=== PATIENT | female | born 1970 | race Caucasian/White ===

== ENCOUNTER 2019-11-21 16:47 | Observation (INO) | payer MEDICAID ==
[~2019-11-21] VITALS: Ht 157.5 cm; Wt 50.0 kg
--- NOTE | 2019-11-21 17:45 | NUR ---
PT STATES THAT HER CAT SCRATCHED HER YESTERDAY AND TODAY THERE IS A FLUID FILLED BLISTER ON LEFT HAND WELL SMALL PURULENT SCABBED AREA ON THIRD TOP KNUCKLE. PT STAETS VERY PAINFUL TO TOUCH AND HURTS UP INTO HER AXILLA AREA.
--- NOTE | 2019-11-21 17:46 | NUR ---
ARIN AT BEDSIDE ATTEMPTING IV ACCESS AND LAB DRAW.
[2019-11-21 18:03] LABS: HEMATOCRIT 38.4 % (37.0-47.0); HEMOGLOBIN 12.7 g/dl (12.0-16.0); IMMATURE GRANULOCYTES 0.4 % (0.0-5.0); MEAN CELL VOLUME 93.7 fL CALC (80.0-100.0); MEAN CORPUSCULAR HGB CONC 33.1 g/L CALC (32.0-36.0); NEUT# 9.32 thou/uL (2.00-7.15); RED BLOOD COUNT 4.1 mill/uL (4.20-5.60); RED CELL DISTRI WIDTH 13.2 % (11.5-15.5)
[2019-11-21 18:26] LABS: ANION GAP 14 (6-22 (CALC)); BUN 4 mg/dL (7-17); BUN/CREATININE RATIO 8 (12-20 (CALC)); CARBON DIOXIDE 24 mmol/l (22-30); CHLORIDE 101 mmol/l (95-108); CREATININE 0.5 mg/dL (0.5-1.0); GFR > 60 ML/MIN (>=60 (CALC)); GFR FOR AFR.AMER. > 60 ML/MIN (>=60 (CALC)); POTASSIUM 3.8 mmol/l (3.5-5.1); SODIUM 135 mmol/l (137-146)
--- NOTE | 2019-11-21 18:36 | NUR ---
IVF AND IV ABT INFUSING ORDERED, CALL SOLORIO WITHIN REACH.
--- NOTE | 2019-11-21 19:14 | NUR ---
Admission Note Report Given to: CLEMENTE MIRELES Transported by: X Wheelchair Stretcher Transported with: X Nurse Transporter X Patent IV [employer] Location: ICU X [facility]
--- NOTE | 2019-11-21 20:00 | NUR ---
PT ARRIVED TO FLOOR VIA WHEELCHAIR.DX LEFT HAND CELLULITIS. PT WAS BITTEN BY CAT AT HOME. A/OX3 ABLE TO VOICE NEEDS. MIN PAIN VOICED IN LEFT HAND RADIATING UP TO NECK.LUNGS CLEAR. ABDOMEN SOFT NONTENDER. PULSES PRENSENT. SKIN INTACT.MD CONTACT. MORPHINE AND ZOFRAN ORDERS RECIEVED. BED IN LOW POSITION. CALL LIGHT IN REACH, WILL MONITOR. .
[2019-11-22] VITALS: BP 100/59
--- NOTE | 2019-11-22 03:08 | NUR ---
VANCO TROUGH IS 15-VANCO HUNG ORDERED VIA RIGHT FOREARM. NO COMPLANTS AT THIS TIME. SAFETY PRECAUTIONS REINFORCED. CALL LIGHT IN REACH. WILL CONT TO MONITOR.
[2019-11-22 05:42] VITALS: BP 100/64
--- NOTE | 2019-11-22 08:09 | NUR ---
S: NADIA CARLISLE is a 49 F who presents with cellulitis of the left hand. All medications in patient's chart were reviewed. O: VS: BP:114/42, P:112, RR:18, T:99.5 W: 50kg, HT: 62in, Scr=0.5, CrCl= 107.4 mL/min A: Blood culture is pending. P: Patient is on vancomycin. Vancomycin ordered for pharmacy to dose. Start Vancomycin 1 g IV q12h. Vancomycin trough is drawn before the 4th dose on 11/23/19 at 0830. Vancomycin goal trough is between 10-15 mcg/ml. Pharmacy will follow and or advise on antibiotics use as needed.
--- NOTE | 2019-11-22 14:55 | NUR ---
PT A&oX3 SITTING UP IN BED W/VISITOR AT BEDSIDE. C/O PAIN STARTING TO INCREASEAT THIS TIME. EDUCATED PATIENT ON KEEPING LUE ELEVATED TO HELP "THROBBING" PAIN. PAIN MEDICATIONS ADMINISTERED, PT TOLERATING WELL. WILL CONTINUE TO ASSESS AND MONITOR. EMMA
[2019-11-22 16:00] VITALS: BP 102/70
[2019-11-22 19:28] VITALS: BP 80/54
--- NOTE | 2019-11-22 19:45 | NUR ---
PT. SITTING UP IN BED WITH NO DISTRESS NOTED; DENIES NEEDS/PAIN. UPDATED ON POC AND VERBALIZES UNDERSTANDING. CELLULITIS NOTED TO OUTER LEFT 2 KNUCKLES; MARTINEZ. ASSESSMENT COMPLETED. IV SITE PATENT AND SL. ENCOURAGED TO CALL FOR ANY NEEDS. CALL LIGHT IS IN REACH.
[2019-11-22 20:58] VITALS: BP 98/52
--- NOTE | 2019-11-22 20:58 | NUR ---
REASSESSED B/P MANUALLY . PT. REFUSED LOVENOX AND REPORTS SHE WILL AMBULATE MORE.
--- NOTE | 2019-11-22 23:35 | NUR ---
PT. RESTING IN BED WITH NO DISTRESS NOTED;DENIES NEEDS/PAIN. SCHED ABT HUNG. PO FLUIDS OFFERED. ENCOURAGED TO CALL FOR ANY NEEDS.
--- NOTE | 2019-11-23 00:48 | NUR ---
PT. C/O LEFT HAND PAIN / AND MEDICATED WITH ORDERED PRN TRAMADOL, WILL REASSESS. PO FLUIDS OFFERED. CALL LIGHT IS IN REACH.
--- NOTE | 2019-11-23 03:05 | NUR ---
RESTING IN BED WITH NO DISTRESS NOTED; DENIES NEEDS. CALL LIGHT IS IN REACH.
[2019-11-23 03:45] VITALS: BP 86/50
--- NOTE | 2019-11-23 05:27 | NUR ---
PT. C/O LEFT HAND PAIN, MEDICATED WITH ORDERED TORADOL AND SCHED ABT, WILL REASSESS. COFFEE PROVIDED. CALL LIGHT IS IN REACH.
[2019-11-23 05:38] LABS: IMMATURE GRANULOCYTES 0.4 % (0.0-5.0); MEAN CELL VOLUME 95.8 fL CALC (80.0-100.0); MEAN CORPUSCULAR HGB 30.7 pG CALC (26.0-32.0); MEAN CORPUSCULAR HGB CONC 32.1 g/L CALC (32.0-36.0); NEUT# 4.03 thou/uL (2.00-7.15); RED BLOOD COUNT 3.32 mill/uL (4.20-5.60); RED CELL DISTRI WIDTH 13.3 % (11.5-15.5)
[2019-11-23 06:02] LABS: HEMATOCRIT 31.8 % (37.0-47.0); HEMOGLOBIN 10.2 g/dl (12.0-16.0)
[2019-11-23 06:03] LABS: ANION GAP 8 (6-22 (CALC)); BUN 8 mg/dL (7-17); BUN/CREATININE RATIO 16 (12-20 (CALC)); CARBON DIOXIDE 26 mmol/l (22-30); CHLORIDE 106 mmol/l (95-108); CREATININE 0.5 mg/dL (0.5-1.0); GFR > 60 ML/MIN (>=60 (CALC)); GFR FOR AFR.AMER. > 60 ML/MIN (>=60 (CALC)); MAGNESIUM 2.1 mg/dL (1.6-2.3); POTASSIUM 4.3 mmol/l (3.5-5.1); SODIUM 136 mmol/l (137-146)
[2019-11-23 06:21] VITALS: BP 96/50
--- NOTE | 2019-11-23 06:21 | NUR ---
MANUAL B/P OBTAINED AND IS 96/50. PT. ASYMPTOMATIC. DENIES NEEDS. CALL LIGHT IS IN REACH.
[2019-11-23 08:06] VITALS: BP 108/70
[2019-11-23 15:00] VITALS: BP 90/60
[2019-11-23 18:40] VITALS: BP 104/77
--- NOTE | 2019-11-23 19:38 | NUR ---
ASSESSMENT COMPLETED. NO DISTRESS NOTED; RESP. EVEN AND UNLABORED. OUTER TWO KNUCKLES TO LEFT HAND WITH OPEN AREAS NOTED, ENCOURAGED TO ELEVATE.IV SITE PATENT. PT. CONTINUES TO DECLINE LOVENOX INJECTION, BUT WILL ALLOW STAFF TO APPLY LONNIE HOSE; APPLIED AT THIS TIME. ENCOURAGED TO CALL FOR ANY NEEDS. CALL LIGHT IS IN REACH.
--- NOTE | 2019-11-23 21:29 | NUR ---
PT. C/O LEFT HAND PAIN AND SMALL NODULE NOTED TO LEFT OUTER NECK; WARM PACK APPLIED TO NECK AND INSTRUCTED TO SHOW PROVIDER IN AM UPON ROUNDS; VERBALIZES UNDERSTANDING. MEDICATED WITH SCHEDULED TORADOL, WILL REASSESS. CALL LIGHT IS IN REACH.
--- NOTE | 2019-11-23 23:50 | NUR ---
SCHEDULED ANTIBIOTIC HUNG. DENIES PAIN. COLA PROVIDED. ENCOURAGED TO CALL FOR ANY NEEDS. CALL LIGHT IS IN REACH.
--- NOTE | 2019-11-24 03:29 | NUR ---
PT. C/O LEFT HAND PAIN WELL NECK PAIN ADJUSTED PILLOWS AND MEDICATED WITH ORDERED PRN LORTAB, WILL REASSESS. CALL LIGHT IS IN REACH.
[2019-11-24 03:35] VITALS: BP 95/58
--- NOTE | 2019-11-24 05:35 | NUR ---
PT. RESTING IN BED WATCHING TV. NO DISTRESS NOTED. C/O LEFT HAND PAIN 02/15 AND MEDICATED WITH ORDERED/SCHED TORADOL; WILL REASSESS. COFFEE PROVIDED. CALL LIGHT IS IN REACH.
[2019-11-24 05:44] LABS: HEMOGLOBIN 10.2 g/dl (12.0-16.0); MEAN CELL VOLUME 94.2 fL CALC (80.0-100.0); MEAN CORPUSCULAR HGB CONC 32.9 g/L CALC (32.0-36.0); RED BLOOD COUNT 3.29 mill/uL (4.20-5.60); RED CELL DISTRI WIDTH 13.3 % (11.5-15.5)
[2019-11-24 08:12] VITALS: BP 120/80
--- NOTE | 2019-11-24 08:20 | NUR ---
PT SITTING UP IN BED WITH BREAKFAST, APPROPRIATE AND CALM, STATES PAIN IS 4/10 AND IS COMFORTABLE. PT HAS CONCERNS REGARDING KNOTTY AREA OF THE LL NECK, WILL DISCUSS WITH MD AND CONTINUE TO MONITOR. PT STATES NO OTHER NEEDS AT THIS TIME. EMMA
[2019-11-24] MEDS ORDERED: ZITHROMAX500 MG PO (10:59)
[2019-11-24] MEDS ORDERED: TRAMADOL HCL50 MG PO (11:10)
[2019-11-24] MEDS ORDERED: AMOX/K CLAV875 M1 PO (11:10)
[2019-11-24] MEDS ORDERED: IBUPROFEN600 MG PO (11:10)
--- NOTE | 2019-11-24 13:20 | NUR ---
DISCHARGE INSTRUCTIONS PROVIDED TO THE PATIENT, NEW PRESCRIPTIONS REVIEWED, ALONG WITH TREATMENT PLAN AND F/UP INSTRUCTIONS. RX'S WERE DELIVERED BY [facility] INSPECTOR PRIOR TO DISCHARGE. PATIENT DENIES HAVING ANY QUESTIONS REGARDING INFORMATION REVIEWED.DECLINED ESCORT TO FRONT ENTRANCE VIA W/C. [facility]
== END 2019-11-24 13:10 | disposition home or self-care (01) ==
LOC: ED 16:47 → ED-I 17:53 → ED 18:38 → MS2 18:39
PROVIDERS: Family Medicine; Nurse Practitioner Family; ADMIT Internal Medicine; ATTEND Internal Medicine
DX: L03.114 Cellulitis of left upper limb (principal); A28.1 Cat-scratch disease; S60.512A Abrasion of left hand, initial encounter; F17.200 Nicotine dependence, unspecified, uncomplicated; W55.03XA Scratched by cat, initial encounter
CPT/HCPCS: G0378; J1650